=== PATIENT | male | born 1990 ===

== ENCOUNTER 2017-03-11 12:29 | Emergency (ER) | payer OTHER ==
[~2017-03-11] VITALS: Ht 177.8 cm; Wt 72.1 kg
[~2017-03-11 12:29] MED LIST: BACLOFEN10 MG PO; FAMOTIDINE20 MG PO; LIORESAL PO; MEDROL8 MG PO; MULTIVITAMINS1 EAC1 PO; OMEGA 3 FISH OI1 CAP; PROTONIX40 M1; RESTORIL15 MG PO; SERTRALINE HCL50 MG PO; ZANTAC300 MG
[2017-03-11] MEDS ORDERED: CELEBREX100 MG (13:24)
[2017-03-11] MEDS ORDERED: ZANAFLEX4 M1 (13:25)
== END 2017-03-11 22:50 | disposition home or self-care (01) ==
LOC: ER 12:29
DX: K94.23 Gastrostomy malfunction (principal); Z74.01 Bed confinement status